=== PATIENT | male | born 1995 | race Hispanic/Latino ===

== ENCOUNTER 2019-08-10 13:59 | Emergency (ER) | payer OTHER ==
[2019-08-10] MEDS ORDERED: MECLIZINE HCL 25 MG TABLET ONE (15:18)
== END 2019-08-10 16:24 | disposition home or self-care (01) ==
LOC: EDH 13:59
DX: R42 Dizziness and giddiness (principal); F12.90 Cannabis use, unspecified, uncomplicated; Z72.0 Tobacco use
CPT/HCPCS: 99282